=== PATIENT | male | born 1950 | race Caucasian/White ===

== ENCOUNTER 2016-07-23 21:57 | Emergency (ER) | payer OTHER, MEDICARE ==
[2016-07-23] MEDS ORDERED: NORMAL SALINE 250 ML IV ONE (22:24)
[2016-07-23] MEDS ORDERED: MORPHINE SULFATE 10 MG/ML SYR ONE (22:49)
[2016-07-23] MEDS ORDERED: MIDAZOLAM HCL 2 MG/2 ML VIAL ONE (22:49)
[2016-07-23 22:51] LABS: ARTERIAL BLOOD GAS PCO2 73.5 mmHg (35-45)
[2016-07-23 22:52] LABS: ARTERIAL BLD GAS O2 SATURATION 45 % (95-98); ARTERIAL BLOOD GAS BASE EXCESS < -30 (-2-+3); ARTERIAL BLOOD GAS HCO3 7.2 mmol/L (22-26); ARTERIAL BLOOD GAS PO2 57 mmHg (80-105); ARTERIAL BLOOD GAS TOTAL CO2 9 mmHg (23-27)
[2016-07-23] MEDS ORDERED: AMIODARONE HCL 150 MG/3 ML VIAL IV ONE (23:10)
[2016-07-23] MEDS ORDERED: EPINEPHrine 1:10,000 1 MG/10 ML SYR ONE (23:10)
--- NOTE | 2016-07-23 23:36 | ER NURSING DOCUMENTATION ---
Nurse's Notes [facility] Name:Krishna Salguero Age:65 yrs Sex:Male :1950 Arrival Date:07/23/2016 Time:21:57 BedTrauma A Private MD: Diagnosis:Cardiac Arrest Presentation: 07/23 20:58 Compressions began prior to arrival. rh 20:58 Transition of care: Home. rh 21:50 Presenting complaint: Patient states: STATES - PT fell unconscious at 2039 this rh evening, unwitnessed event. PT found between toilet and wall. called EMS. EMS arrived on scene and began CPR. Pt rhythm varied between PEA/asystole/ and bradycardia. Pt was shocked 4 times on scene and lost pulses several times. EMS regained pulses after CPR and lost then en route to the ED. Pt transported to ED with CPR in progress. 21:50 Activity prior to arrival: unresponsive. rh 22:00 Acuity: JORDANA 1 rh 22:12 Care prior to arrival: CPR manually performed by EMS was defibrillated and is still in rh progress. Care prior to arrival: assisted ventilation, oral intubation, IV initiated. gauge and site 18G R AC IV Fluids given by EMS Other 4000ml Medication(s) given: EPINEPHRINE x 8, AMIODORONE x 1. 22:12 Method Of Arrival: EMS: 410 rh Triage Assessment: 21:57 EENT: Bleeding noted from the Sharath Tube. Neuro: Level of Consciousness is unresponsive, rh Pupils are fixed, dilated, non-reactive. Respiratory: Airway via oral intubation. Derm: Skin is intact, is healthy with good turgor, Skin is pale, Skin temperature is cool. 21:57 Derm: Skin tear on the left forearm. rh 21:57 Cardiovascular: Rhythm is PEA. rh Historical: - Allergies: No known drug Allergies; - Home Meds: 1. Multiple Vitamins oral 2. aspirin 81 mg oral tab 1 tab once daily 3. ibuprofen 200 mg oral cap 1 cap every 4 hours as needed 4. Sinemet oral 4 times per day 5. Requip 1 mg oral tab 1 tab 3 times per day 6. AZILECT 1 mg oral tab 1 tab once daily - PMHx: ERECTILE DYSFUNCTION; PARKINSONS; - PSHx: LASIK 2006; T & A; - Tetanus: unknown. - Ebola Screening: : Unable to complete screening because. - Immunization history: Flu Vaccine < 1 year. - Social history: Smoking status: Patient states former smoker of tobacco. Screenin:10 Abuse screen: Unable to Obtain. Nutritional screening: Unable to Obtain. Tuberculosis rh screening: No symptoms or risk factors identified. Assessment: 21:55 CPR assessment: unresponsive, pupils fixed & dilated, no respiratory effort, intubated, rh Ambu ventilation, pulses present w/ compressions. Cardiac rhythm is asystole. Derm: Skin is intact, Skin is pale, Skin temperature is cool. 22:00 CPR assessment: unresponsive, pupils fixed & dilated, intubated, Ambu ventilation, rh pulses present w/ compressions. 22:05 CPR assessment: unresponsive, pupils fixed & dilated, intubated, Ambu ventilation, rh pale, pulses present w/ compressions. 22:16 CPR assessment: unresponsive, pupils fixed & dilated, no respiratory effort, intubated, rh Ambu ventilation. Cardiac rhythm is bradycardia. 22:20 CPR assessment: unresponsive, pupils fixed & dilated, no respiratory effort, intubated, rh Ambu ventilation, pale, pulses present w/ compressions. Cardiac rhythm is PEA. 22:25 CPR assessment: unresponsive, pupils fixed & dilated, no respiratory effort, intubated, rh Ambu ventilation, pale, pulses present w/ compressions. 22:30 CPR assessment: unresponsive, pupils fixed & dilated, no respiratory effort, intubated, rh Ambu ventilation, pale, pulses present w/ compressions. Cardiac rhythm is asystole. 22:38 Reassessment: was spoken to by DR. PINEDA and decided that all measures should be rh terminated. . 22:45 Reassessment: Pt pronounced at 22:45, however family wanted to ensure he wouldn't feel rh anything. Morphine and Versed given to ensure family. . Vital Signs: 21:57 rh 22:12 BP 114 / 78; Pulse 52; Resp 18; Pulse Ox 15 lpm ETT ambu; rh 22:24 Pulse 60; Resp 12; Pulse Ox 99% on 15 lpm ETT ambu; rh 21:57 Unable to obtain a set of vitals upon arrival. CPR in progress, pt in asystole. BP and rh O2 are not able to picker tender ED Course: 20:58 Valuables Given to family. rh 21:50 Notified ED Physician of patient's arrival and chief complaint. Dr. Pineda notified. rh 21:55 quality control chemist on. Pulse ox on. NIBP on. rh 21:57 Patient arrived in ED. ma1 21:57 Patient has correct armband on for positive identification. Maintain field IV. Site rh clean & dry. Gauge & site: 20G R HAND. Maintain field IV. Gauge & site: IO RIGHT TIBIAL TUBEROSITY . 22:00 Swapna Olivarez is Primary Nurse. rh 22:00 Triage completed. rh 22:00 Suctioned via ETT - moderate amount thin bloody sputum. rh 22:05 ABG drawn. (by ED staff). on oxygen. Drawn by DR PINEDA - Femoral draw. rh 22:08 Blane Pineda MD is Attending Physician. sc 22:10 Suctioned via ETT - moderate amount thin bloody sputum. rh 22:18 Intubation: Ventilated with 100% bag valve mask (BVM) prior to procedure. 7.0 Fr. ETT rh placed orally. Performed by Blane Pineda MD Successful on third attempt. Placement verified by CO2 detector w/ + color change, auscultating bilateral breath sounds, Ventilated with Ambu bag. 22:20 Suctioned via ETT - moderate amount thin bloody sputum. rh 22:20 Assist ventilation with Ambu bag. rh 22:32 Inserted intraosseous access INSERTED BY THE POWERTRAIN DESIGN ENGINEER. rh 23:23 Blane Pineda MD is Pronouncing Provider. sc Administered Medications: 21:57 Drug: EPINEPHrine 1:10,000 1 mg; Route: IVP; Site: right antecubital; rh 23:26 Follow up: Response: No adverse reaction rh 22:04 Drug: EPINEPHrine 1:10,000 1 mg; Route: IVP; Site: right antecubital; rh 23:26 Follow up: Response: No adverse reaction rh 22:09 Drug: EPINEPHrine 1:10,000 1 mg; Route: IVP; Site: right antecubital; rh 23:26 Follow up: Response: No adverse reaction rh 22:19 Drug: EPINEPHrine 1:10,000 1 mg; Route: IVP; Rate: 4 mcg/min; Site: right hand; rh 23:37 Follow up: Response: No change in condition rh 22:20 Drug: NS 0.9% 1000 ml; Route: IV; Rate: bolus; Site: right femoral; rh 22:39 Follow up: IV Status: Infusion discontinued; IV Intake: 800ml rh 22:21 Drug: EPINEPHrine 1:10,000 1 mg; Route: IVP; Site: right antecubital; rh 23:26 Follow up: Response: No adverse reaction; No change in condition rh 22:30 Drug: EPINEPHrine 1:10,000 1 mg; Route: IVP; Site: right hand; rh 23:26 Follow up: Response: No adverse reaction; No change in condition rh 22:33 Drug: Sodium Bicarbonate 1 amp; Route: IVP; Site: right hand; rh 23:27 Follow up: Response: No adverse reaction; No change in condition rh 22:49 Drug: morphine 10 mg; {Note: ADMINISTERED BY LARRY CHAWLA RN.} Route: IVP; Site: right rh hand; 23:26 Follow up: Response: No adverse reaction; No change in condition rh 22:49 Drug: Versed 4 mg; {Note: ADMINISTERED BY LARRY CHAWLA RN .} Route: IVP; Site: right rh hand; 23:27 Follow up: Response: No adverse reaction; No change in condition rh Intake: 22:39 IV: 800ml; Total: 800ml. rh Output: 22:39 Urine: 0ml; Total: 0ml. rh Outcome: 22:39 Outcome Patient rh 22:39 Patient : Time of 22:45 Pronounced by Blane Pineda MD 22:45 Condition: rh 23:05 Patient : Application Architect Manager notified rh 23:35 Patient left the ED. rh 07/24 00:15 Patient : Body released to Home rh Signatures: Blane Pineda MD MD [place] Swapna Olivarez Aylin Hu [facility]
--- NOTE | 2016-07-23 23:36 | ER PHYSICIAN DOCUMENTATION ---
Physician Documentation [facility] Name:Krishna Salguero Age:65 yrs Sex:Male :1950 Arrival Date:07/23/2016 Time:21:57 BedTrauma A Private MD: Blane Allen Disposition: 07/23 23:23 Critical Care: not applicable. ma Disposition: Patient pronounced on 22:45:00 by Blane Pineda. Impression: Cardiac Arrest. - Released to Home. HPI: 22:54 This 65 yrs old Male presents to ER via EMS with complaints of Cardiac Arrest.sc 22:54 Preceding the arrest, the patient was found down by family. The arrest occurred at ma home. Pre-hospital course: The arrest was not witnessed by others. Bystanders at the scene did not perform CPR. EMS care prior to arrival: initiation of ACLS, peripheral IV, was successfully placed. intubation with a EOA, oxygen, Sharath tube. backboard, EMS call time was 20:50. ACLS details: Initial rhythm was asystole. The presenting rhythm is PEA. Airway: Ambu assist ventilation, Medications given by EMS prior to arrival - Epinephrine IV x 10 doses, Amiodarone 300 mg IV push given, Defibrillated X 3, an external pacer was not used, Response to therapy: return of pulse. The patient has not experienced similar symptoms in the past. Historical: - Allergies: No known drug Allergies; - Home Meds: 1. Multiple Vitamins oral 2. aspirin 81 mg oral tab 1 tab once daily 3. ibuprofen 200 mg oral cap 1 cap every 4 hours as needed 4. Sinemet oral 4 times per day 5. Requip 1 mg oral tab 1 tab 3 times per day 6. AZILECT 1 mg oral tab 1 tab once daily - PMHx: ERECTILE DYSFUNCTION; PARKINSONS; - PSHx: LASIK 2006; T & A; - Tetanus: unknown. - Ebola Screening: : Unable to complete screening because. - Immunization history: Flu Vaccine < 1 year. - Social history: Smoking status: Patient states former smoker of tobacco. ROS: 22:57 Cardiovascular: sc 22:57 Unable to obtain ROS due to patient is on ventilator, cpr continued on arrival. 23:23 Respiratory: Negative for recent symptoms per family. ma Exam: 23:11 Constitutional: The patient appears sc 23:11 Eyes: Pupils: are fixed and dilated. 23:11 Cardiovascular: Rate: actual rate is 78 bpm, Pulses: not palpable, Heart sounds: Edema: is not appreciated, JVD: is noted bilaterally. 23:11 Respiratory: no spontaneous respirations are appreciated, Respirations: no spontaneous respirations appreciated, Breath sounds: rales, that are severe, are heard diffusely, hemorrhage around tube and in tube, multiple suctioning. Sharath tube in place, breath sounds with ventilation. No signs of trauma.. Vital Signs: 21:57 rh 22:12 BP 114 / 78; Pulse 52; Resp 18; Pulse Ox 15 lpm ETT ambu; rh 22:24 Pulse 60; Resp 12; Pulse Ox 99% on 15 lpm ETT ambu; rh 21:57 Unable to obtain a set of vitals upon arrival. CPR in progress, pt in asystole. BP and rh O2 are not able to machine operator picker Procedures: 23:15 CPR: See CPR flow sheet. Initial patient assessment: unresponsive, pupils fixed & sc dilated, no respiratory effort, pale, intubated, Ambu ventilation, pulses present w/ compressions, The presenting cardiac rhythm is PEA. the patient was intubated prior to arrival, Compressions: began prior to arrival. at 20:50. Meds given: Epinephrine X 3, despite ED evaluation and treatment, the patient . Family notified. CPR was stopped at 22:45. ABG with pH 6.59 after one hour cpr and about to cease efforts when spontaneous pulses occurred. Since pulses occurred repeatedly after epi bolus epi gtt initiated. Pulses occurred intermittently then but family appreciated that survival not possible and agreed with cessation of resuscitation efforts.. MDM: 22:08 Patient medically screened. ma 23:22 Differential diagnosis: cardiac arrest. Data reviewed: vital signs, nurses notes, lab ma test result(s). 23:22 Data reviewed: and as a result, I will continue to observe the patient. ma 07/23 22:53 Order name: ARTERIAL BLOOD GAS; Complete Time: 23:24 EDLA 07/23 23:24 Interpretation: Abnormal. ma 07/23 23:09 Order name: Oxygen; Complete Time: 23:10 07/23 23:09 Order name: Iv Saline Lock; Complete Time: 23:10 07/23 23:09 Order name: Cardiac Monitoring - Continuous; Complete Time: 23:10 07/23 23:09 Order name: ET CO2 Monitoring; Complete Time: 23:10 rh Dispensed Medications: 21:57 Drug: EPINEPHrine 1:10,000 1 mg; Route: IVP; Site: right antecubital; rh 23:26 Follow up: Response: No adverse reaction rh 22:04 Drug: EPINEPHrine 1:10,000 1 mg; Route: IVP; Site: right antecubital; rh 23:26 Follow up: Response: No adverse reaction rh 22:09 Drug: EPINEPHrine 1:10,000 1 mg; Route: IVP; Site: right antecubital; rh 23:26 Follow up: Response: No adverse reaction rh 22:19 Drug: EPINEPHrine 1:10,000 1 mg; Route: IVP; Rate: 4 mcg/min; Site: right hand; rh 23:37 Follow up: Response: No change in condition rh 22:20 Drug: NS 0.9% 1000 ml; Route: IV; Rate: bolus; Site: right femoral; rh 22:39 Follow up: IV Status: Infusion discontinued; IV Intake: 800ml rh 22:21 Drug: EPINEPHrine 1:10,000 1 mg; Route: IVP; Site: right antecubital; rh 23:26 Follow up: Response: No adverse reaction; No change in condition rh 22:30 Drug: EPINEPHrine 1:10,000 1 mg; Route: IVP; Site: right hand; rh 23:26 Follow up: Response: No adverse reaction; No change in condition rh 22:33 Drug: Sodium Bicarbonate 1 amp; Route: IVP; Site: right hand; rh 23:27 Follow up: Response: No adverse reaction; No change in condition rh 22:49 Drug: morphine 10 mg; {Note: ADMINISTERED BY LARRY CHAWLA RN.} Route: IVP; Site: right rh hand; 23:26 Follow up: Response: No adverse reaction; No change in condition rh 22:49 Drug: Versed 4 mg; {Note: ADMINISTERED BY LARRY CHAWLA RN .} Route: IVP; Site: right rh hand; 23:27 Follow up: Response: No adverse reaction; No change in condition rh Signatures: Blane Pineda MD MD sc Hofsess, Rachel rh
== END 2016-07-23 22:45 | disposition expired ==
LOC: ER 21:57
DX: I46.9 Cardiac arrest, cause unspecified (principal)
CPT/HCPCS: 31500; 82803; 92950; 96374; 96375; 99291; 99292; A0425; A0433; J0282; J2250; J2270; J7050